=== PATIENT | female | born 2000 | race Caucasian/White ===

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

== ENCOUNTER 2022-02-10 22:24 | Emergency (ER) | payer MEDICAID ==
[~2022-02-10] VITALS: Ht 170.2 cm; Wt 95.3 kg
[~2022-02-10 22:24] MED LIST: AZIT250T3 PO; PRED20TA5 PO
[2022-02-10 22:32] VITALS: BP 123/88
[2022-02-10] MEDS: IPRATROPIUM 0.02% 0.5 MG/2.5 ML NEBU INH ONE (23:13)
[2022-02-10] MEDS: ALBUTEROL 0.083% 2.5 MG/3 ML NEBU INH ONE (23:16)
[2022-02-10] MEDS: DEXAMETHASONE 10 MG/ML VIAL IM ONE (23:21)
[2022-02-11] MEDS ORDERED: ALBU-118 INH (00:42)
== END 2022-02-11 00:47 | disposition home or self-care (01) ==
LOC: MED 22:24
DX: J45.901 Unspecified asthma with (acute) exacerbation (principal); R06.00 Dyspnea, unspecified
CPT/HCPCS: 94640; 96372; 99283; J1100; J7613; J7644

== ENCOUNTER 2022-06-03 19:17 | Emergency (ER) | payer MEDICAID ==
[~2022-06-03] VITALS: Ht 170.2 cm; Wt 90.7 kg
[~2022-06-03 19:17] MED LIST changes: +ALBU-118 INH
--- NOTE | 2022-06-03 19:40 | NUR ---
CALLED TO TRIAGE, NO ANSWER
--- NOTE | 2022-06-03 19:55 | NUR ---
CALLED TO TRIAGE, NO ANSWER
--- NOTE | 2022-06-03 20:39 | NUR ---
TO TRIAGE AT THIS TIME
[2022-06-03 20:40] VITALS: BP 134/68
--- NOTE | 2022-06-03 20:45 | NUR ---
TO LOBBY FOLLOWING TRIAGE
--- NOTE | 2022-06-03 23:12 | NUR ---
EVAN MARTINEZ AT BEDSIDE TO EXAMINE PT.
--- NOTE | 2022-06-03 23:12 | NUR ---
PT TO BED 12
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
[2022-06-03] MEDS ORDERED: IBUP-2213 PO (23:20)
[2022-06-03] MEDS ORDERED: BACI-352 TP (23:20)
[2022-06-03] MEDS ORDERED: CEPH500T PO (23:20)
[2022-06-03 23:38] VITALS: BP 128/70
--- NOTE | 2022-06-03 23:38 | NUR ---
Patient discharged with v/s stable. Written and verbal after care instructions given and explained. Patient alert, oriented and verbalized understanding of instructions. Ambulatory with steady gait. All questions addressed prior to discharge. ID band removed. Patient advised to follow up with PMD. Rx of NEOSPORIN, CEPHALEXIN, AND IBUPROFEN given.
== END 2022-06-03 23:38 | disposition home or self-care (01) ==
LOC: MED 19:17
DX: S61.308A Unspecified open wound of other finger with damage to nail, initial encounter (principal); J45.909 Unspecified asthma, uncomplicated; Z79.899 Other long term (current) drug therapy; Y04.0XXA Assault by unarmed brawl or fight, initial encounter; Y93.89 Activity, other specified; Y92.89 Other specified places as the place of occurrence of the external cause; Y99.8 Other external cause status
CPT/HCPCS: 99283

== ENCOUNTER 2022-06-07 19:27 | Emergency (ER) | payer MEDICAID ==
[~2022-06-07] VITALS: Ht 170.2 cm; Wt 98.4 kg
[~2022-06-07 19:27] MED LIST changes: +BACI-352 TP; +CEPH500T PO; +IBUP-2213 PO
[2022-06-07 19:54] VITALS: BP 102/66
[2022-06-07] MEDS ORDERED: DEXAMETHASONE 4 MG TAB PO ONE (20:50)
[2022-06-07 21:18] VITALS: BP 126/80
== END 2022-06-07 21:10 | disposition home or self-care (01) ==
LOC: MED 19:27
DX: B34.9 Viral infection, unspecified (principal); Z20.822 Contact with and (suspected) exposure to COVID-19; L50.9 Urticaria, unspecified
CPT/HCPCS: 99283

== ENCOUNTER 2022-07-14 23:40 | Emergency (ER) | payer MEDICAID ==
[~2022-07-14] VITALS: Ht 170.2 cm; Wt 81.6 kg
[2022-07-14 23:52] VITALS: BP 143/60
--- NOTE | 2022-07-14 23:55 | NUR ---
TO LOBBY A/W BED AMBULATORY
[2022-07-15] MEDS ORDERED: ALBUTEROL SULFATE/IPRATROPIU 3 ML SOL IH ONE (00:45)
[2022-07-15] MEDS ORDERED: predniSONE 20 MG TAB PO ONE (00:45)
--- NOTE | 2022-07-15 01:12 | NUR ---
RT AT BEDSIDE
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
[2022-07-15] MEDS ORDERED: PRED20TA5 PO (01:35)
[2022-07-15] MEDS ORDERED: ALBU0.0912 INH (01:35)
[2022-07-15 02:37] VITALS: BP 133/67
--- NOTE | 2022-07-15 02:37 | NUR ---
Patient discharged with v/s stable. Written and verbal after care instructions given and explained. Patient alert, oriented and verbalized understanding of instructions. Ambulatory with steady gait. All questions addressed prior to discharge. ID band removed. Patient advised to follow up with PMD. Rx of PREDNISONE AND ALBUTEROL given. Patient educated on indication of medication including possible reaction and side effects. Opportunity to ask questions provided and answered.
== END 2022-07-15 02:37 | disposition home or self-care (01) ==
LOC: MED 23:40
DX: J45.901 Unspecified asthma with (acute) exacerbation (principal)
CPT/HCPCS: 94640; 99283; J7512

== ENCOUNTER 2022-07-25 12:33 | Emergency (ER) | payer MEDICAID ==
[~2022-07-25] VITALS: Ht 170.2 cm; Wt 81.6 kg
[~2022-07-25 12:33] MED LIST changes: +ALBU0.0912 INH
[2022-07-25 12:41] VITALS: BP 112/70
[2022-07-25] MEDS ORDERED: ACETAMINOPHEN EXTRA STRENGTH 500 MG TAB ONE (12:45)
[2022-07-25] MEDS ORDERED: ACETAMINOPHEN EXTRA STRENGTH 500 MG TAB PO ONE (12:45)
--- NOTE | 2022-07-25 12:48 | NUR ---
PT AMB TO BED 4.
[2022-07-25] MEDS ORDERED: predniSONE 20 MG TAB PO ONE (13:00)
[2022-07-25] MEDS ORDERED: ALBUTEROL HFA MDI 90 MCG/ACTUATION 8 GM INH ONE (13:00)
--- NOTE | 2022-07-25 13:06 | NUR ---
X-Ray at bedside.
--- NOTE | 2022-07-25 13:19 | NUR ---
22 y/o female bib self with c/o SOB, productive cough and fever x 2 days. Per patient, her niece is sick at home. Patient uses Albuterol inhaler at home. Patient's oxygen at time of assessment 95% on room air. Medical History: Asthma NKDA
--- NOTE | 2022-07-25 13:30 | NUR ---
Obtained DEBBIE and FLU specimen, walked to lab. Handed to CPT Brigida.
--- NOTE | 2022-07-25 13:50 | NUR ---
Dr. Tsai evaluating patient at bedside.
[2022-07-25] MEDS ORDERED: ONDA-188 PO (13:56)
[2022-07-25] MEDS ORDERED: PRED20TA5 PO (13:56)
[2022-07-25] MEDS ORDERED: TAM75 PO (13:56)
--- NOTE | 2022-07-25 14:20 | NUR ---
Patient discharged with v/s stable. Written and verbal after care instructions given and explained. Patient alert, oriented and verbalized understanding of instructions. Ambulatory with steady gait. All questions addressed prior to discharge. ID band removed. Patient advised to follow up with PMD. Rx of PREDINSONE,TAMIFLU,ZOFRAN given. Patient educated on indication of medication including possible reaction and side effects. Opportunity to ask questions provided and answered.
[2022-07-25 14:27] VITALS: BP 111/68
== END 2022-07-25 14:27 | disposition home or self-care (01) ==
LOC: MED 12:33
DX: J45.901 Unspecified asthma with (acute) exacerbation (principal); B34.9 Viral infection, unspecified; Z20.822 Contact with and (suspected) exposure to COVID-19; R00.0 Tachycardia, unspecified; Z79.899 Other long term (current) drug therapy; Z79.1 Long term (current) use of non-steroidal anti-inflammatories (NSAID); Z79.2 Long term (current) use of antibiotics
CPT/HCPCS: 71045; 87426; 87804; 94664; 99284; J3535; J7512

== ENCOUNTER 2023-04-04 12:30 | Emergency (ER) | payer MEDICAID ==
[~2023-04-04] VITALS: Ht 170.2 cm; Wt 104.0 kg
[~2023-04-04 12:30] MED LIST changes: +ONDA-188 PO; +TAM75 PO
[2023-04-04 12:41] VITALS: BP 140/69; PULSE 109; RESP 20; TEMP 98.9; O2SAT 94
[2023-04-04] MEDS ORDERED: ALBU0.0912 IH (13:17)
[2023-04-04] MEDS ORDERED: AMOX500C25 PO (13:17)
[2023-04-04] MEDS ORDERED: PRED20TA5 PO (13:17)
[2023-04-04] MEDS ORDERED: OFLO5SOL27 RIGHT EAR (13:17)
--- NOTE | 2023-04-04 13:47 | NUR ---
Patient discharged with v/s stable. Written and verbal after care instructions given. Patient alert, oriented and verbalized understanding of instructions. Ambulatory with steady gait. All questions addressed prior to discharge. ID band removed. Patient advised to follow up with PMD. Rx of PROVENTIL, AMOXICILLIN, OFLOXACIN AND PREDNISONE given. Opportunity to ask questions provided and answered.
--- NOTE | 2023-04-04 16:30 | NUR ---
The patient's care was reviewed and supervised by BRIANA GUNTER RN.
== END 2023-04-04 13:47 | disposition home or self-care (01) ==
LOC: MED 12:30
DX: H60.91 Unspecified otitis externa, right ear (principal); J45.909 Unspecified asthma, uncomplicated; Z79.899 Other long term (current) drug therapy
CPT/HCPCS: 99283

== ENCOUNTER 2023-06-21 22:25 | Emergency (ER) | payer MEDICAID ==
[~2023-06-21] VITALS: Ht 170.2 cm; Wt 81.6 kg
[~2023-06-21 22:25] MED LIST changes: +ALBU0.0912 IH; +AMOX500C25 PO; +OFLO5SOL27 RIGHT EAR
[2023-06-21 22:30] VITALS: BP 116/78; PULSE 89; RESP 18; TEMP 97.9; O2SAT 96
[2023-06-21] MEDS ORDERED: ALBUTEROL 0.083% 2.5 MG/3 ML NEBU INH ONE (22:30)
[2023-06-21] MEDS ORDERED: predniSONE 20 MG TAB PO ONE (22:30)
[2023-06-21] MEDS ORDERED: ALBUTEROL SULFATE/IPRATROPIU 3 ML SOL IH ONE (22:30)
[2023-06-21 22:49] VITALS: BP 138/83
[2023-06-21 22:51] VITALS: PULSE 89; PULSE 91; RESP 20; O2SAT 96; O2SAT 97
[2023-06-21] MEDS ORDERED: ALBU0.0912 INH (23:23)
[2023-06-21] MEDS ORDERED: PRED20TA5 PO (23:23)
[2023-06-21 23:32] VITALS: O2SAT 98
== END 2023-06-21 23:31 | disposition home or self-care (01) ==
LOC: MED 22:25
DX: J45.901 Unspecified asthma with (acute) exacerbation (principal); Z79.899 Other long term (current) drug therapy; Z79.2 Long term (current) use of antibiotics; Z79.1 Long term (current) use of non-steroidal anti-inflammatories (NSAID)
CPT/HCPCS: 94640; 99283; J7512; J7613

== ENCOUNTER 2023-11-16 13:02 | Emergency (ER) | payer BC, MEDICAID ==
[~2023-11-16] VITALS: Ht 170.2 cm; Wt 90.7 kg
[2023-11-16 13:18] VITALS: BP 121/73; PULSE 110; RESP 18; TEMP 98.1; O2SAT 96
[2023-11-16] MEDS: ALBUTEROL SULFATE/IPRATROPIU 3 ML SOL IH ONE (14:38)
[2023-11-16] MEDS: IPRATROPIUM 0.02% 0.5 MG/2.5 ML NEBU INH ONE (14:38)
[2023-11-16] MEDS ORDERED: PRON INH (15:07)
[2023-11-16] MEDS ORDERED: PRED20TA5 PO (15:07)
== END 2023-11-16 15:11 | disposition home or self-care (01) ==
LOC: MED 13:02
DX: J45.901 Unspecified asthma with (acute) exacerbation (principal); Z79.899 Other long term (current) drug therapy
CPT/HCPCS: 94640; 99283; J7644

== ENCOUNTER 2023-12-12 19:22 | Emergency (ER) | payer BC ==
[~2023-12-12] VITALS: Ht 170.2 cm; Wt 90.7 kg
[~2023-12-12 19:22] MED LIST changes: +PRON INH
[2023-12-12 19:36] VITALS: BP 117/85; PULSE 142; RESP 26; TEMP 98.7; O2SAT 91
[2023-12-12 19:45] VITALS: PULSE 142; RESP 24; O2SAT 93
[2023-12-12] MEDS: IPRATROPIUM 0.02% 0.5 MG/2.5 ML NEBU INH ONE ×2 (19:45→20:20)
[2023-12-12] MEDS: ALBUTEROL 0.083% 2.5 MG/3 ML NEBU INH ONE ×2 (19:45→20:20)
[2023-12-12 20:16] VITALS: PULSE 134; RESP 20; O2SAT 93
[2023-12-12] MEDS: predniSONE 20 MG TAB PO ONE (20:55)
[2023-12-12 21:02] VITALS: O2SAT 94
[2023-12-12 21:15] VITALS: BP 114/57; PULSE 94; RESP 19; O2SAT 94
== END 2023-12-12 21:15 | disposition home or self-care (01) ==
LOC: MED 19:22
DX: J45.909 Unspecified asthma, uncomplicated (principal); Z79.899 Other long term (current) drug therapy
CPT/HCPCS: 81025; 94640; 99285; J7512; J7613; J7644

== ENCOUNTER 2024-03-18 13:23 | Emergency (ER) | payer BC, MEDICAID ==
[~2024-03-18] VITALS: Ht 170.2 cm; Wt 100.2 kg
[2024-03-18 13:47] VITALS: BP 101/68; PULSE 105; RESP 26; TEMP 98; O2SAT 96
[2024-03-18 14:05] VITALS: PULSE 101; RESP 16; O2SAT 96
[2024-03-18] MEDS: ALBUTEROL SULFATE/IPRATROPIU 3 ML SOL IH ONE (14:05)
[2024-03-18 14:09] VITALS: O2SAT 96
[2024-03-18] MEDS ORDERED: NACL 0.9% 1,000 ML IV ONE (14:20)
[2024-03-18] MEDS ORDERED: MAG SULF 2000 MG/WATER PREMIX 50 ML IV ONE (14:20)
[2024-03-18] MEDS: predniSONE 20 MG TAB PO ONE (14:34)
[2024-03-18] MEDS ORDERED: ATRN INH (15:12)
[2024-03-18] MEDS ORDERED: ALBU0.0912 IH (15:12)
[2024-03-18] MEDS ORDERED: PRED20TA5 PO (15:12)
[2024-03-18 15:38] VITALS: BP 101/68; PULSE 101; RESP 16; TEMP 98; O2SAT 96
== END 2024-03-18 15:39 | disposition home or self-care (01) ==
LOC: MED 13:23
DX: O99.512 Diseases of the respiratory system complicating pregnancy, second trimester (principal); J45.901 Unspecified asthma with (acute) exacerbation; Z3A.28 28 weeks gestation of pregnancy; Z79.899 Other long term (current) drug therapy
CPT/HCPCS: 94640; 99283; J7030; J7512

== ENCOUNTER 2024-05-01 21:49 | Emergency (ER) | payer OTHER ==
[~2024-05-01] VITALS: Ht 170.2 cm; Wt 99.8 kg
[~2024-05-01 21:49] MED LIST changes: +ATRN INH
[2024-05-01 22:04] VITALS: BP 120/59; PULSE 97; RESP 16; TEMP 98.2; O2SAT 100
--- NOTE | 2024-05-01 22:18 | NUR ---
PT TO BED [address] BLEVINS AT BEDSIDE WITH PT.
--- NOTE | 2024-05-01 22:33 | NUR ---
BARRY RICE RN, WILL SPEAK WITH [facility] [employer] CLERK ON-CALL AND CALL BACK SO DOCTOR TO DOCTOR CAN CONSULT FOR POSSIBLE TRANSFER.
[2024-05-01 22:44] VITALS: BP 124/63; PULSE 87; RESP 16; TEMP 98.2; O2SAT 97; O2SAT 99
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
--- NOTE | 2024-05-01 22:58 | NUR ---
Patient does not wish to proceed with medical care recommended by DR. BLEVINS. Patient given information related to possible complications, up to and including , which could occur as a result of leaving hospital at this time. Patient verbalizes understanding of risks involved leaving against medical advice. Patient has signed AMA form.
== END 2024-05-01 22:58 | disposition left against medical advice (07) ==
LOC: MED 21:49
DX: O26.893 Other specified pregnancy related conditions, third trimester (principal); R10.9 Unspecified abdominal pain; O99.513 Diseases of the respiratory system complicating pregnancy, third trimester; J45.909 Unspecified asthma, uncomplicated; Z3A.37 37 weeks gestation of pregnancy; Z79.899 Other long term (current) drug therapy; V43.92XA Unspecified car occupant injured in collision with other type car in traffic accident, initial encounter; Y93.89 Activity, other specified; Y92.89 Other specified places as the place of occurrence of the external cause; Y99.8 Other external cause status
CPT/HCPCS: 99284